=== PATIENT | male | born 1970 | race Two or more races ===

== ENCOUNTER 2025-04-21 04:13 | Emergency (ER) | payer MEDICAID, SELFPAY ==
[2025-04-21 04:14] VITALS: BMI 29.9
[2025-04-21 04:24] VITALS: BP 156/100; BP 158/90; PULSE 100; RESP 18; TEMP 36.7; O2SAT 99
[2025-04-21 04:35] VITALS: BP 160/102; PULSE 90; RESP 20; TEMP 37.2; O2SAT 95
[2025-04-21 05:01] LABS: Base Excess, Venous 1 (-3-3); Basophils # (Auto) 0.0 Thou/mm3 (0.0-0.2); Basophils % (Auto) 1 % (0-2.5); Eosinophils # (Auto) 0.1 Thou/mm3 (0.0-0.5); Eosinophils % (Auto) 1 % (0-10); Hematocrit 42.4 % (41.0-53.0); Hemoglobin 15.2 g/dL (13.5-16.0); Immature Granulocytes Auto 0.13 Thou/mm3 (0.00-0.00); Lymphocytes # (Auto) 2.0 Thou/mm3 (1.0-4.8); Lymphocytes % (Auto) 29 % (10-50); Mean Corpuscular HGB Conc 35.8 g/dl (31.0-37.0); Mean Corpuscular Hemoglobin 31.8 pg (25.0-35.0); Mean Corpuscular Volume 89 fL (80-100); Monocytes # (Auto) 0.5 Thou/mm3 (0.0-0.8); Monocytes % (Auto) 7 % (0-12); Neutrophils # (Auto) 4.2 Thou/mm3 (1.8-7.7); Neutrophils % (Auto) 60 % (37-80); Nucleated Red Blood Cell # 0.00 Thou/mm3 (0.00-0.00); Nucleated Red Blood Cell % 0 /100 WBC (0); O2 Saturation, Venous 88 % (96-97); PCO2, Venous 41 mmHg (36-56); PO2, Venous 52 mmHg (15-58); Platelet Count 171 Thou/mm3 (140-440); RDW Standard Deviation 38.1 fL (35.1-43.9); Red Blood Count 4.78 Miln/mm3 (4.50-5.90); White Blood Count 7.0 Thou/mm3 (3.8-10.6); pH, Venous 7.40 (7.33-7.66)
[2025-04-21] MEDS: INSULIN HUM REGULAR 1 UNIT/0.01 ML (PER UNIT) 16 UNIT SC (05:11)
--- NOTE | 2025-04-21 05:23 | PD.EDADULT ---
ED General RME/HPI General Chief complaint: General Adult/Misc Complain Stated complaint: I THINK MY SUGAR IS HIGH, DRY MOUTH Time Seen by Provider: 04/21/25 05:38 Arrival date/time: 04/21/25 04:13 RME / HPI RME / HPI narrative: Dr. Camp?s Main ED Evaluation: 54yo male with a history of DM presents to the ED for a chief complaint of elevated blood sugar. Patient states he has been noncompliant with his Jardiance. Endorses having dry mouth and his foreskin being unable to retract, which usually happens when his blood sugar is high. Denies history of DKA. Denies N/V or any other associated symptoms. NKA. Related Data Previous Rx's ?Medication ?Instructions ?Recorded tramadol 50 mg tablet (Ultram) 50 mg PO Q4HR PRN PAIN #14 tabs 03/10/14 clindamycin HCl 300 mg capsule 300 mg PO QID #40 caps 12/23/17 tramadol 50 mg tablet 50 mg PO QID PRN pain #14 tabs 12/23/17 fluconazole 150 mg tablet 150 mg PO .x1 #1 tab 02/01/22 (Diflucan) metformin 500 mg tablet 500 mg PO BID #60 tabs 02/01/22 clotrimazole 1 % topical ointment 1 applic topical TID #56.7 grams 04/21/25 Allergies Allergy/AdvReac Type Severity Reaction Status Date / Time No Known Allergies Allergy Verified 04/21/25 04:14 Review of Systems Review of Systems Systems Reviewed: All systems reviewed, normal except as documented ED Exam Narrative Physical exam: Generally patient is alert no obvious distress and not tachypneic, heart regular rate and rhythm, lungs clear to auscultation equal laterally, abdomen soft bowel sounds present nondistended nontender, neurologic exam no focal motor or sensory deficits cranial nerves II through XII grossly intact, genital exam shows swollen foreskin without wound. Course Quality Measures none Orders Category Date Time Status Blood glucose [Bedside Blood Glucose] NOW Care 04/21/25 04:18 Active CBC Stat Lab 04/21/25 04:52 Completed CMP [Comprehensive Metabolic Panel] Stat Lab 04/21/25 04:52 Received VBG [Venous Blood Gas] Stat Lab 04/21/25 04:52 Completed Insulin Regular Med 04/21/25 04:53 Discontinued 16 unit SC X1 ONE Vital Signs Vital signs: Vital Signs Temperature 98.1 F 04/21/25 04:24 Pulse Rate 100 04/21/25 04:24 Respiratory Rate 18 04/21/25 04:24 Blood Pressure 156/100 H 04/21/25 04:24 Pulse Oximetry (%) 99 04/21/25 04:24 Oxygen Delivery Method Room Air 04/21/25 04:24 Discharge Plan Plan Patient Disposition: HOME (Self Care) Prescriptions/Referrals Prescriptions/Med Rec: New clotrimazole 1 % ointment 1 applic topical TID Qty: 56.7 0RF No Action tramadol [Ultram] 50 MG tablet 50 mg PO Q4HR PRN (Reason: PAIN) Qty: 14 0RF Rx Instructions: FOR PAIN, NOT TO EXCEED 8 TABS IN 24 HRS clindamycin HCl 300 mg capsule 300 mg PO QID Qty: 40 0RF tramadol 50 mg tablet 50 mg PO QID PRN (Reason: pain) Qty: 14 0RF fluconazole [Diflucan] 150 mg tablet 150 mg PO .x1 Qty: 1 0RF metformin 500 mg tablet 500 mg PO BID Qty: 60 0RF Problem List Clinical Impression: Poorly controlled diabetes mellitus, Balanitis Patient/Caregiver Discharge Instructions Additional Instructions: Take your diabetes medication as prescribed. Use the clotrimazole cream as prescribed. Follow-up with your doctor. Return to ER as needed or if condition worsens. Print Language: Maori Stand Alone Forms: Erma Award Info., Patient Portal Info Letter MDM Narrative [facility] hospital course (for use when minimal MDM required): Scribe Attestation: 04/21/25 - Brittani Arango am scribing for and in the presence of Dr. Camp. Patient has what appears to be a balanitis most likely secondary to his poorly controlled diabetes. Blood sugar was 5-6. Patient received 16 units of subcutaneous regular insulin. He has not been compliant with his Jardiance. It was stressed to the patient that he needs to become compliant with his diabetic medication. He states that he has plenty of his diabetic medication at home. He will be given a prescription for clotrimazole cream to be used as prescribed. Follow-up with his doctor. Return to ER as needed or if condition worsens. Patient is not in diabetic ketoacidosis. He is not tachycardic. He is not tachypneic. pH on a venous blood gas was 7.40. Clinical Information Provided by: patient Medical Records reviewed [facility] (Per chart review, patient has no relevant previous ED visits.) Meds/Rx considered, not ordered None Labs/Rad/Tests considered, not ordered None Chronic Illness/Social Conditions Explain: Hx DM Labs Labs: interpreted by me Medication Administration(s) Medication Administration History Discontinued Medications Insulin Human Regular (Insulin Hum Regular 1 Unit/0.01 Ml (Per Unit)) 16 unit SC X1 ONE Stop: 04/21/25 04:54 Last Admin: 04/21/25 05:11 Dose: 16 unit Documented By: FRANSISCO Co-signed By: MARLEN see above Diagnosis Differential Diagnosis ED Complaint MDM: See MDM
[2025-04-21 06:32] VITALS: BP 126/95; PULSE 85; RESP 17; TEMP 36.3; O2SAT 96
[2025-04-21 07:32] LABS: Alanine Aminotransferase 252 U/L (10-49); Albumin, Serum 4.7 gm/dL (3.5-5.0); Albumin/Globulin Ratio 1.4 (1.2-2.2); Alkaline Phosphatase 127 U/L (46-116); Anion Gap 12 (7-16); Aspartate Amino Transferase 246 U/L (0-34); BUN/Creatinine Ratio 8 Ratio (12-20); Bilirubin,Total 0.7 mg/dL (0.3-1.2); Blood Urea Nitrogen 9 mg/dL (9-23); Calcium 9.5 mg/dL (8.3-10.6); Calcium (Corrected) 9.5 mg/dL (8.5-10.1); Carbon Dioxide 23.3 mMol/L (20.0-31.0); Chloride 96 mMol/L (98-107); Creatinine (Component) 1.2 mg/dL (0.6-1.3); Estimated Creatinine Clearance 91.6 mL/min (>60); Globulin 3.4 gm/dL (2.3-3.5); Glucose 518 mg/dL (74-106); Osmolality,Calculated 284 (275-295); Potassium 4.5 mMol/L (3.4-5.1); Sodium 131 mMol/L (136-145); Total Protein 8.1 gm/dL (5.7-8.2); eGFR > 60 See Note
== END 2025-04-21 06:46 | disposition home or self-care (01) ==
LOC: SERX 06:12
PROVIDERS: Emergency Provider Emergency Medicine; PCP Family Medicine
DX: E11.65 Type 2 diabetes mellitus with hyperglycemia (principal); N48.1 Balanitis; Z91.199 Patient's noncompliance with other medical treatment and regimen due to unspecified reason; Z79.84 Long term (current) use of oral hypoglycemic drugs
CPT/HCPCS: 36415; 80053; 82803; 85025; 99282; J1815